=== PATIENT | female | born 1940 | race Caucasian/White ===

== ENCOUNTER 2020-11-11 19:13 | Emergency (ER) | payer MEDICARE ==
[~2020-11-11] VITALS: Ht 162.6 cm; Wt 54.6 kg
[2020-11-11] MEDS ORDERED: IV NORMAL SALINE 1000ML BAG 1,000 ML IV SCH (19:30)
[2020-11-11 20:04] LABS: BASO % 0 % (0-3); EOS % 0 % (0-3); HEMATOCRIT 34.8 % (36.0-47.0); HEMOGLOBIN 11.5 g/dL (12.0-15.5); LYMPH % 38 % (24-48); MEAN CORPUSCULAR HEMOGLOBIN 31 pg (25-35); MEAN CORPUSCULAR HGB CONC 33 g/dL (31-37); MEAN CORPUSCULAR VOLUME 94 fL (79-100); MONO # 0.3 x10^3/uL (0.0-1.1); MONO % 3 % (0-9); NEUT # 4.6 x10^3/uL (1.8-7.7); NEUT % 58 % (31-73); PLATELET COUNT 154 x10^3/uL (140-400); RED CELL DISTRIBUTION WIDTH 13.5 % (11.5-14.5); WHITE BLOOD COUNT 7.9 x10^3/uL (4.0-11.0)
--- NOTE | 2020-11-11 20:08 | PHYS DOC ---
Past Medical History Past Medical History: Dementia Past Surgical History: Cholecystectomy, Hysterectomy Smoking Status: Never Smoker Alcohol Use: Rarely Additional Information: SERA X1 TODAY General Adult EDM: Chief Complaint: NAUSEA/VOMITING/DIARRHEA HPI: HPI: 80-year-old female past medical history significant for dementia, presents to the ED BIBEMS with complaints of multiple episodes of nausea, nonbloody nonbilious vomiting after patient had a hamburger and one sera at [facility] in [facility] for lunch. Patient was with her biological sister who is present at ED bedside, she reports no bloody emesis/witnessed today's events, no associated diarrhea. Patient also had potato salad that she had eaten earlier today and is concerned maybe this had been . Patient lives alone. Is supposed to have her second meningitis vaccine tomorrow. Patient reports she feels off. Patient denies any associated upper respiratory infections, fever, chills, headache, neck stiffness, diaphoresis, chest pressure, dyspnea, abscess, leg swelling, neurologic deficits, abdominal pain, back pain, melenic hematochezia, hematemesis, or nuchal rigidity. Review of Systems: Review of Systems: Constitutional: Denies fever or chills. [] Eyes: Denies change in visual acuity. [] HENT: Denies nasal congestion or sore throat. [] Respiratory: Denies cough or shortness of breath. [] Cardiovascular: Denies chest pain or edema. [] GI: Denies bloody stools or diarrhea. [] : Denies dysuria or hematuria Musculoskeletal: Denies back pain or joint pain. [] Integument: Denies rash. [] Neurologic: Denies headache, focal weakness or sensory changes. [] Endocrine: Denies polyuria or polydipsia. [] Lymphatic: Denies swollen glands. [] Psychiatric: Denies depression or anxiety. [] Heart Score: C/O Chest Pain: No Risk Factors: Risk Factors: DM, Current or recent (<one month) smoker, HTN, HLP, family history of CAD, obesity. Risk Scores: Score 0 - 3: 2.5% MACE over next 6 weeks - Discharge Home Score 4 - 6: 20.3% MACE over next 6 weeks - Admit for Clinical Observation Score 7 - 10: 72.7% MACE over next 6 weeks - Early Invasive Strategies Current Medications: Current Medications Medications (Trade) Dose Ordered Sig/Edison Start Time Stop Time Status Last Admin Dose Admin Sodium Chloride 1,000 ml @ 1,000 mls/hr Q1H 11/11/20 19:30 11/11/20 20:29 Allergies: Allergies: Allergies Coded Allergies Type Severity Reaction Last Updated Verified No Known Drug Allergies 11/11/20 No Physical Exam: PE: Constitutional: Well developed, well nourished, no acute distress, non-toxic appearance. HENT: Normocephalic, atraumatic, dry mucous membranes Eyes: EOMI, conjunctiva normal, no discharge. Neck: Normal range of motion, supple, Cardiovascular: S1/2 present, regular rhythm Lungs & Thorax: Speaking in full sentences, bilateral equal chest rise, no tachypnea or increased work of breathing Abdomen: soft, no tenderness, right upper quadrant angled scar with history of cholecystectomy, no epigastric abdominal pain, no McBurney's point tenderness, no peritonitis or guarding Skin: Warm, dry, no erythema, no rash. [] Back: No midline tenderness, no CVA tenderness. [] Extremities: No tenderness, no cyanosis, no lower extremity edema, ambulates to bathroom easily with assistance Neurologic: Alert/confused as to month/year/location-calls her daughter pick her up today, normal motor function, normal sensory function, no focal deficits noted. [] Psychologic: Affect normal, judgement normal, mood normal. [] Current Patient Data: Vital Signs: Vital Signs Date Time Temp Pulse Resp B/P (MAP) Pulse Ox O2 Delivery O2 Flow Rate FiO2 11/11/20 19:16 97.6 60 14 162/71 (101) 100 Room Air 97.6 EKG: EKG: Sinus rhythm at 60 bpm, no axis deviation, first-degree AV block with MI 222, otherwise normal intervals, no T wave inversions, no ST elevations or ST dep ressions Radiology/Procedures: Radiology/Procedures: IMAGING REPORT Signed PATIENT: OLMAN ROQUE MACCOUNT: [id number] : 1940 LOCATION: ER AGE: 80 SEX: F EXAM STATUS: REG ER ORD. PHYSICIAN: MEGHA RODRIGUEZ DO REASON: stomach pain PROCEDURE: CT ABD PELV W/ IV CONTRST ONLY Study: CT abdomen/pelvis with intravenous contrast Indication: Stomach pain. Comparison: None. Technique: Helical CT imaging performed of the abdomen and pelvis after the intravenous administration of 75 cc Omnipaque 300 contrast. Sagittal and coronal reformats were obtained. One or more of the following individualized dose reduction techniques were utilized for this examination: 1. Automated exposure control 2. Adjustment of the mA and/or kV according to patient size 3. Use of iterative reconstruction technique. Findings: Small hiatal hernia. Mild thickening of the distal esophageal wall. No significant abnormality of the visualized lungs. Within normal limits liver. Surgically absent gallbladder. Ectatic biliary tree most frequently on account of reservoir effect in combination with senescent prominence. Nondilated pancreatic duct. No discrete mass. The spleen is within normal limits for size. Unremarkable adrenal glands. No complex renal cyst or mass. No hydronephrosis. Moderate distention of the urinary bladder. Wall thickness is within normal limits. Absent uterus. No adnexal mass. Colonic diverticulosis without diverticulitis. Moderate volume well-formed stool burden. Normal appendix. Nonobstructed small bowel. No discrete gastric mucosal abnormality. No gastric wall emphysema. Patent major veins. Retroaortic left renal vein. Scattered atheromatous plaque without aneurysmal dilatation of the abdominal aorta. Surgical clips along the iliac vasculature. No significant lymph node enlargement with only a few borderline prominent right inguinal lymph nodes. Ventral pelvic midline surgical scarring. No free fluid or pneumoperitoneum. No acute or aggressive osseous process. Scattered degenerative changes. Impression: 1. No acute abnormality seen throughout the abdomen or pelvis. 2. Moderate distention of the urinary bladder the significance of which is uncertain. Recommend correlation for voluntary or involuntary urinary retention. 3. Chronic observations detailed in the body the report. Electronically signed by: FRANCA SHAW MD (11/11/2020 9:03 PM) [facility] IMAGING REPORT Signed PATIENT: OLMAN ROQUE MACCOUNT: [id number] : 1940 LOCATION: ER AGE: 80 SEX: F EXAM STATUS: REG ER ORD. PHYSICIAN: MEGHA RODRIGUEZ DO REASON: n/v PROCEDURE: CHEST AP ONLY Study: XR CHEST 1V Indication: Nausea and vomiting. Comparison: Same day CT abdomen/pelvis. Findings: The cardiomediastinal silhouette and narciso are within normal limits. No confluent airspace infiltrate, pleural effusion or pneumothorax. Cholecystectomy clips. Impression: No acute radiographic abnormality of the chest. Electronically signed by: FRANCA SHAW MD (11/11/2020 9:57 PM) [facility] DICTATED and SIGNED BY: FRANCA SHAW MD DATE: 11/11/[id number] 0 DICTATED and SIGNED BY: FRANCA SHAW MD DATE: 11/11/[id number] 0 Course & Med Decision Making: Course & Med Decision Making Pertinent Labs and Imaging studies reviewed. (See chart for details) Concern for nausea and vomiting in the setting of alcohol intoxication vs food poisoning. Patient now asymptomatic with no leukocytosis or tachycardia. V oiding spontaneously with no difficulty twice. Labs with normocytic anemia, no prior for baseline comparison. Urinalysis with trace leuks, rare WBC and few bacteria. Patient with no dysuria or hematuria. Will DC home with Zofran ODT as needed for nausea and vomiting (no active vomiting in ed and denies current nausea - meds given prior to dc). Patient with no active chest pain, bowel pain, back pain-symptoms have resolved. Will discharge home with strict ED return precautions were given for dehydration, vomiting, chest pressure, syncope or neurologic deficits. Encouraged urgent outpatient follow-up with PMD in 24 to 48 hours for reevaluation. Life-threatening processes were considered but are low suspicion at this time, given history, physical exam and ED workup. Pt was educated on all prescription medications and adverse effects. All patient's questions were answered and pt was stable at time of discharge. Life/limb-threatening differential includes but is not limited to, acute coronary syndrome/myocardial infarction, Boerhaave's, DKA, gastrointestinal bleeding, intracranial hemorrhage, ischemic bowel, meningitis, sepsis, surgical abdomen (AAA), toxidrome (drug over/overdose/carbon monoxide, etc), ovarian/testicular torsion, trauma, or infection/sepsis. I spoken with the patient and her caregivers. I explained the patient's condition, diagnoses and treatment plan based on the information available to me at this time. I have answered the patient and her caregiver's questions and addressed any concerns. The patient and her caregivers have a good understanding of patient's diagnosis, condition and treatment plan as can be exp ected at this point. Vital signs have been stable. Patient's condition is stable and appropriate for discharge from the emergency department. Patient will pursue further outpatient evaluation with primary care physician or other designated or consulting physician as outlined in the discharge instructions. The patient and/or caregivers are agreeable to this plan of care and follow-up instructions have been explained in detail. The patient and/or caregivers have received these instructions in written form and have expressed an understanding of the discharge instructions. The patient and/or caregivers are aware that any significant change of condition or worsening of symptoms should prompt immediate return to this or the closest emergency department or c all to 911. Zmags Disclaimer: Zmags Disclaimer: This electronic medical record was generated, in whole or in part, using a voice recognition dictation system. Departure Departure Impression: Primary Impression: Vomiting Additional Impression: Alcohol intoxication Disposition: 01 DC HOME SELF CARE/HOMELESS Condition: STABLE Referrals: MOHAN PARR MD Follow-up with your PCP in 24 to 48 hours for reevaluation FOLLOW UP WITH FAMILY MEDICINE: Family Medicine Address: [address] [place] [address] Patient Instructions: Alcohol Intoxication, Nausea and Vomiting Additional Instructions: EMERGENCY DEPARTMENT GENERAL DISCHARGE INSTRUCTIONS Thank you for coming to [facility] Emergency Department (ED) today and trusting us with you care. We trust that you had a positive experience in our Emergency Department. If you wish to speak to the department management, you may call the Director at [phone]. YOUR FOLLOW UP INSTRUCTIONS ARE FOLLOWS: 1. Do you have a private Doctor? If you do not have a private doctor, please ask for a resource list of physicians or clinics that may be able to assist you with follow up care. 2. The Emergency Physicain has interpreted your x-rays. The X-Ray specialist will also review them. If there is a change in the findings, you will be notified in 48 hours when at all possible. 3. A lab test or culture has been done, your results will be reviewed and you will be notified if you need a change in treatment. ADDITIONAL INSTRUCTIONS AND INFORMATION: 1. Your care today has been supervised by a physician who is specially trained in emergency care. Many problems require more than one evaluation for a complete diagnosis and treatment. We recommend that you schedule your follow up appointment as recommended to ensure complete treatment of you illness or injury. If you are unable to obtain follow up care and continue to have a problem, or if your condition worsens, we recommend that you return to the ED. 2. We are not able to safely determine your condition over the phone nor are we able to give sound medical advice over the phone. For these safety reasons, if you call for medical advice we will ask you to come to the ED for further evaluation. 3. If you have any questions regarding these discharge instructions please call the ED at [phone]. SAFETY INFORMATION: In the interest of safety, wellness, and injury prevention; we encourage you to wear your sealbelt, if you smoke; quite smoking, and we encourage family to use a protective helmet for bicycling and other sporting events that present an increased risk for head injury. IF YOUR SYMPTOMS WORSEN OR NEW SYMPTOMS DEVELOP, OR YOU HAVE CONCERNS ABOUT YOUR CONDITION; OR IF YOUR CONDITION WORSENS WHILE YOU ARE WAITING FOR YOUR FOLLOW UP APPOINTMENT; EITHER CONTACT YOUR PRIMARY CARE DOCTOR, THE PHYSICIAN WHOSE NAME AND NUMBER YOU WERE GIVEN, OR RETURN TO THE ED IMMEDIATELY. Scripts Ondansetron (ONDANSETRON ODT) 4 Mg Tab.rapdis 1 TAB PO PRN Q6-8HRS, #10 TAB Prov: MEGHA RODRIGUEZ DO 11/11/20 MEGHA RODRIGUEZ DO Nov 11, 2020 20:08
[2020-11-11 20:16] LABS: PROTHROMBIN TIME PATIENT 12.8 SEC (11.7-14.0)
[2020-11-11 20:17] LABS: CALCIUM 8.9 mg/dL (8.5-10.1); CREATININE 0.8 mg/dL (0.6-1.0); GFR 68.7; POTASSIUM 3.5 mmol/L (3.5-5.1)
[2020-11-11 20:23] LABS: ALBUMIN 3.9 g/dL (3.4-5.0); DIRECT BILIRUBIN 0.2 mg/dL (0.0-0.2); TOTAL BILIRUBIN 0.6 mg/dL (0.2-1.0); TOTAL PROTEIN 6.5 g/dL (6.4-8.2)
[2020-11-11 20:27] LABS: BILIRUBIN,URINE NEGATIVE (NEG); CLARITY,URINE CLEAR; COLOR,URINE YELLOW; NITRITE,URINE NEGATIVE (NEG); PROTEIN,URINE NEGATIVE (NEG-TRACE); UROBILINOGEN,URINE 0.2 mg/dL (0.2 mg/dL)
[2020-11-11] MEDS ORDERED: IOHEXOL 300 MG/ML 100ML VIAL. IV ONE (20:30)
[2020-11-11 20:32] LABS: BARBITURATES NEG (NEG); BENZODIAZEPINES NEG (NEG); CANNABINOIDS NEG (NEG); COCAINE NEG (NEG); METHADONE NEG (NEG); OPIATES NEG (NEG); PHENCYCLIDINE NEG (NEG)
[2020-11-11 20:33] LABS: AMPHETAMINE/METHAMPHETAMINE NEG (NEG)
[2020-11-11 20:37] LABS: BACTERIA,URINE FEW /HPF (0-FEW); RBC,URINE 0 /HPF (0-2); WBC,URINE RARE /HPF (0-4)
--- NOTE | 2020-11-11 21:05 | RAD ---
Study: CT abdomen/pelvis with intravenous contrast Indication: Stomach pain. Comparison: None. Technique: Helical CT imaging performed of the abdomen and pelvis after the intravenous administratio n of 75 cc Omnipaque 300 contrast. Sagittal and coronal reformats were obtained. One or more of the following individualized dose reduction techniques were utilized for this examinat ion: 1. Automated exposure control 2. Adjustment of the mA and/or kV according to patient size 3. Use of iterative reconstruction technique. Findings: Small hiatal hernia. Mild thickening of the distal esophageal wall. No significant abnormality of the visualized lungs. Within normal limits liver. Surgically absent gallbladder. Ectatic biliary tree most frequently on ac count of reservoir effect in combination with senescent prominence. Nondilated pancreatic duct. No di screte mass. The spleen is within normal limits for size. Unremarkable adrenal glands. No complex renal cyst or mass. No hydronephrosis. Moderate distention of the urinary bladder. Wall th ickness is within normal limits. Absent uterus. No adnexal mass. Colonic diverticulosis without diverticulitis. Moderate volume well-formed stool burden. Normal appen mirta. Nonobstructed small bowel. No discrete gastric mucosal abnormality. No gastric wall emphysema. Patent major veins. Retroaortic left renal vein. Scattered atheromatous plaque without aneurysmal dil atation of the abdominal aorta. Surgical clips along the iliac vasculature. No significant lymph node enlargement with only a few borderline prominent right inguinal lymph nodes. Ventral pelvic midline surgical scarring. No free fluid or pneumoperitoneum. No acute or aggressive osseous process. Scattered degenerative changes. Impression: 1. No acute abnormality seen throughout the abdomen or pelvis. 2. Moderate distention of the urinary bladder the significance of which is uncertain. Recommend fabienne elation for voluntary or involuntary urinary retention. 3. Chronic observations detailed in the body the report. Electronically signed by: FRANCA SHAW MD (11/11/2020 9:03 PM) [facility]
--- NOTE | 2020-11-11 21:13 | NUR ---
advised TAMIKO rivers is needing a red or green top for test @2111
--- NOTE | 2020-11-11 21:20 | EKG ---
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
[2020-11-11 21:59] VITALS: BP 162/67
--- NOTE | 2020-11-11 21:59 | RAD ---
Study: XR CHEST 1V Indication: Nausea and vomiting. Comparison: Same day CT abdomen/pelvis. Findings: The cardiomediastinal silhouette and narciso are within normal limits. No confluent airspace infiltrate, pleural effusion or pneumothorax. Cholecystectomy clips. Impression: No acute radiographic abnormality of the chest. Electronically signed by: FRANCA SHAW MD (11/11/2020 9:57 PM) [facility]
[2020-11-11] MEDS ORDERED: ONDA4TAB12 PO (22:13)
[2020-11-11] MEDS ORDERED: FAMOTIDINE 20 MG/2 ML VIAL IVP ONE (22:15)
[2020-11-11] MEDS ORDERED: ONDANSETRON PF 4 MG/2 ML VIAL. IVP ONE (22:15)
== END 2020-11-11 22:29 | disposition home or self-care (01) ==
LOC: ER 19:13
DX: R11.2 Nausea with vomiting, unspecified (principal); F10.129 Alcohol abuse with intoxication, unspecified; Y90.2 Blood alcohol level of 40-59 mg/100 ml; F03.90 Unspecified dementia, unspecified severity, without behavioral disturbance, psychotic disturbance, mood disturbance, and anxiety; Z90.49 Acquired absence of other specified parts of digestive tract; Z90.710 Acquired absence of both cervix and uterus
CPT/HCPCS: 36415; 71045; 74177; 80048; 80076; 80307; 81001; 82550; 83690; 84484; 85025; 85610; 85730; 87086; 93005; 96361; 96374; 96375; 99285; G0480; J2405; J3490; J7030; Q9967